=== PATIENT | female | born 1955 | race Hispanic/Latino ===

== ENCOUNTER → 2023-06-28 | Outpatient (CLI) | payer OTHER ==
[2023-06-28 12:40] LABS: ALBUMIN 3.6 g/dL (3.5-5.0); BILIRUBIN,TOTAL 0.4 mg/dL (0.2-1.0); CREATININE 0.6 mg/dL (0.5-1.5); MAGNESIUM 1.9 mg/dL (1.80-2.40); POTASSIUM 3.9 mmol/L (3.5-5.1); TOTAL PROTEIN, SERUM 7.7 g/dL (6.0-8.3)
== END | disposition home or self-care (01) ==
LOC: LAB 10:38
PROVIDERS: ATTEND Internal Medicine Cardiovascular Disease
DX: R07.9 Chest pain, unspecified (principal); R60.9 Edema, unspecified
CPT/HCPCS: 36415; 80053; 83735; 83880

== ENCOUNTER 2025-05-15 18:56 | Emergency (ER) | payer MEDICARE ==
[~2025-05-15] VITALS: Ht 165.1 cm; Wt 88.5 kg
[2025-05-15 18:57] VITALS: TEMP 98.2
--- NOTE | 2025-05-15 19:21 | EKG ---
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
[2025-05-15 19:25] LABS: IMMATURE GRANULOCYTE ABSOLUTE 0.02 K/uL (0-1); NUCLEATED RED BLOOD CELLS 0.0 % (0.0-0.19); PLATELET COUNT (AUTO) 264 K/uL (130-400); RED BLOOD CELL COUNT(AUTO) 3.91 MIL/uL (4.00-5.50); RED CELL DISTRIBUTION WIDTH 12.6 % (11.0-15.5); WHITE BLOOD COUNT (AUTO) 6.2 K/uL (4.8-10.8)
[2025-05-15 19:33] LABS: INR 0.97 (0.85-1.15)
[2025-05-15 19:41] LABS: CREATINE KINASE, TOTAL 130.0 U/L (21-232)
--- NOTE | 2025-05-15 19:41 | ERN ---
ED Note History of Present Illness Stated Complaint: DIZZINESS Chief Complaint: Dizzy/Light Headed Time Seen by MD: 19:01 Time Seen by Midlevel: 19:01 Dictation: The patient is a 70-year-old female with history of gastric bypass in 2019, cholecystectomy who presents to the emergency department with complaints of dizziness onset just prior to arrival. Patient reports that she doing some shopping today when she develop an onset of dizziness associated with shortness of breath and right side headache. Patient reports she feels like the room is spinning. Patient reports she had been recently diagnosed with COVID three weeks ago and she finished her Paxlovid. reports occasional cough. Patient denies any visual deficits, denies any numbness, denies any fevers. patient denies any head trauma, denies any syncopal episodes, denies any falls. Allergies: Coded Allergies: Sulfa (Sulfonamide Antibiotics) (Unverified Allergy, Unknown, 05/15/25) Past Medical History Past Medical History: Arthritis Surgical History: Cholecystectomy RN Note Reviewed/Agreed w/PFSH: Yes Review of System Dictation Constitutional: Negative for fever,chills, and weight loss Eyes: Negative for injury, pain,redness, and discharge ENT: Negative for injury,pain or swelling Cardiovascular: Negative for chest pain, palpitations, and edema Respiratory: Negative for shortness of breath, cough, and wheezing, Abdomen/GI: Negative for abdominal pain, nausea, vomiting, diarrhea, and constipation Back: Negative for injury and pain : Negative for injury, bleeding and discharge MS/Extremity: Negative for injury and deformity Skin: Negative for rash, and discoloration Neuro: Negative for headache, weakness, numbness, tingling, and seizure positive for dizziness Psych: Negative for suicide ideation, homicidal ideation, and hallucinations Initial Vital Sign VS Vital Signs Date Time Temp Pulse Resp B/P (MAP) Pulse Ox O2 Delivery O2 Flow Rate FiO2 05/15/25 18:57 98.2 87 20 101/50 99 Room Air 05/15/25 19:47 0 21 Physical Exam Dictation Vital Signs reviewed General Appearance: Alert, oriented x 3, no acute distress, well developed, nourished. Head and Face: non-traumatic. Eyes: PERRL, pink conjunctivas, eyelid no trauma, anterior chamber with arcus senilis. Ears: Pinnas intact and no signs of trauma or erythema ear canals clear and no discharge TM no erythema Nose: No discharge, no bleeding. Oropharynx: Mouth normal, tongue pink. pharynx clear,no erythema, tonsils no exudates, no abscesses noted, mucous membrane moist Neck: Supple, non-tender, no thyromegaly, no masses, no JVD, no bruits Breast:Deferred Chest:No tenderness, no crepitus, no paradoxical movement, no retractions Lungs:Clear, well-ventilated, symmetric, no rales, no wheezing, no rhonchi, no stridor, good breath sounds bilaterally Heart: Regular rate, regular rhythm, no murmur, no gallops Vascular: no peripheral edema, Abdomen: Soft, positive bowel sounds, nondistended, no guarding, nontender, no rebound, no masses no hepatomegaly, no splenomegaly, no Light's sign, no hernias. Rectal: Deferred Genital: Deferred Neurological: Normal speech, motor function intact, sensory function intact , upper extremities equal in strength, lower extremities equal in strength, no facial droop, no slurred speech Musculoskeletal: Neck nontender, full range of motion, back nontender, full range of motion, Extremities: nontender, full range of motion Skin: Color pink, dry, no turgor, no rash, no lacerations, no abrasions, no contusions. Lymphatic: Deferred Results (Laboratory/Radiology) Laboratory/Radiology Laboratory Tests Test 05/15/25 19:18 White Blood Count 6.2 K/uL (4.8-10.8) Red Blood Count 3.91 MIL/uL (4.00-5.50) L Hemoglobin 12.6 g/dL (12.0-16.0) Hematocrit 38.0 % (36-48) Mean Corpuscular Volume 97.2 fL (79-99) Mean Corpuscular Hemoglobin 32.2 pg (27.0-33.0) Mean Corpuscular Hemoglobin Concent 33.2 g/dL (32.0-36.0) Red Cell Distribution Width 12.6 % (11.0-15.5) Platelet Count 264 K/uL (130-400) Mean Platelet Volume 9.7 fL (7.5-10.5) Immature Granulocyte % (Auto) 0.3 % (0-1) Neutrophils (%) (Auto) 66.8 % (40.0-77.0) Lymphocytes (%) (Auto) 23.2 % (21.0-51.0) Monocytes (%) (Auto) 6.5 % (3.0-13.0) Eosinophils (%) (Auto) 2.4 % (0.0-8.0) Basophils (%) (Auto) 0.8 % (0.0-5.0) Neutrophils # (Auto) 4.1 K/uL (1.8-7.7) Lymphocytes # (Auto) 1.4 K/uL (1.0-4.8) Monocytes # (Auto) 0.4 K/uL (0.1-1.0) Eosinophils # (Auto) 0.15 K/uL (0.00-0.70) Basophils # (Auto) 0.05 K/uL (0.00-0.20) Absolute Immature Granulocyte (auto 0.02 K/uL (0-1) Nucleated Red Blood Cells 0.0 % (0.0-0.19) Prothrombin Time 10.3 SEC (9.6-11.6) Prothromb Time International Ratio 0.97 (0.85-1.15) Activated Partial Thromboplast Time 24.0 SEC (26.3-35.5) L Sodium Level 138 mmol/L (136-145) Potassium Level 3.2 mmol/L (3.5-5.1) L Chloride Level 102 mmol/L (101-111) Carbon Dioxide Level 26 mmol/L (21-32) Blood Urea Nitrogen 20 mg/dL (7-18) H Creatinine 0.7 mg/dL (0.5-1.0) Glomerular Filtration Rate Calc 94 mL/min (>90) Random Glucose 116 mg/dL (70-105) H Total Calcium 8.5 mg/dL (8.5-10.1) Magnesium Level 1.80 mg/dL (1.80-2.40) Total Creatine Kinase 130 U/L (21-232) Troponin I High Sensitivity 5 ng/L (4-50) REASON: dizzy ORDERING PHYSICIAN: MERRILL ALBRIGHT PROCEDURE: HEAD WO - CT HEAD/BRAIN W/O CONTRAST EXAM: CT Head Without IV contrast. CLINICAL HISTORY: dizzy TECHNIQUE: Axial computed tomography images of the head/brain without intravenous contrast. COMPARISON: None provided. FINDINGS: BRAIN: No evidence of acute hemorrhage. No mass lesion. No CT evidence for acute territorial infarct. No midline shift or extra-axial collections. VENTRICLES: No hydrocephalus. ORBITS: The orbits are unremarkable. SINUSES AND MASTOIDS: The paranasal sinuses and mastoid air cells are clear. BONES: No fracture. SOFT TISSUES: Unremarkable. IMPRESSION: No acute intracranial abnormality. /[place] REASON: NEAR SYNCOPE ORDERING PHYSICIAN: KAREL GARZA MD PROCEDURE: CXR1VW - CHEST 1VW EXAM: CR Chest, 1 View. CLINICAL HISTORY: NEAR SYNCOPE COMPARISON: None provided. FINDINGS: LUNGS: There is no mass, infiltrate, or acute pulmonary abnormality. PLEURAL SPACES: No evidence of pleural effusion or pneumothorax. MEDIASTINUM: Cardiac size and mediastinal contours within normal limits. BONES: No acute osseous abnormality. IMPRESSION: No acute cardiopulmonary pathology is evident. /[place] Labs Reviewed?: Yes EKG: (+) rhythm (Sinus rhythm) EKG Comment: Date:05/15/2025 Time:1912 Ventricular rate:70 [place] interval:132 QRS duration:108 QT/QTc:413/447 EKG interpretation: Sinus rhythm Reviewed by ED Attending no STEMI ED Course ED Course Orders Procedure Category Date Status Time Cbc With Differential LAB 05/15/25 Complete 19:08 Basic Metabolic Panel LAB 05/15/25 Complete 19:08 Pt And Ptt LAB 05/15/25 Complete 19:08 12 Lead Ekg Tracing- EKG 05/15/25 Complete Technical 19:08 Chest 1vw RAD 05/15/25 Resulted 19:08 Troponin I High LAB 05/15/25 Complete Sensitivity 19:10 Creatine Kinase, Total LAB 05/15/25 Complete 19:10 Ct Head/Brain W/O CT 05/15/25 Resulted Contrast 19:10 Orthostatic Vital CPOE 05/15/25 Transmitted Signs 19:10 0.9%Nacl 1000ml (Ns PHA 05/15/25 Complete 1000ml) 19:30 Meclizine Hcl 25 Mg PHA 05/15/25 Complete (Antivert 25 Mg) 19:30 Acetaminophen 500mg PHA 05/15/25 Complete Tab (Tylenol 500mg T 19:30 Magnesium LAB 05/15/25 Complete 19:10 Potassium Bicarb/Cit PHA 05/15/25 Complete Ac 25meq (K-Lyte Ta 21:00 Current Medications Medications (Trade) Dose Ordered Sig/Geetha Route PRN Reason Start Time Stop Time Status Last Admin Dose Admin Acetaminophen (TYLenol 500MG TAB) 1,000 mg ONCE ONCE PO 05/15/25 19:30 05/15/25 19:31 DC 05/15/25 19:46 Meclizine HCl (ANTIvert 25 mg) 25 mg ONCE ONCE PO 05/15/25 19:30 05/15/25 19:31 DC 05/15/25 19:46 Potassium Bicarbonate (K-Lyte Tablet Eff 25 Meq Tablet.eff) 25 meq ONCE ONCE PO 05/15/25 21:00 05/15/25 21:01 DC 05/15/25 20:54 Sodium Chloride 1,000 ml @ 0 mls/hr ONCE ONCE IV 05/15/25 19:30 05/15/25 19:31 DC 05/15/25 19:46 Vital Signs Date Time Temp Pulse Resp B/P (MAP) Pulse Ox O2 Delivery O2 Flow Rate FiO2 05/15/25 20:37 68 17 113/55 98 Room Air* 0 21 05/15/25 20:37 74 17 117/56 98 Room Air* 0 21 05/15/25 20:36 69 17 106/57 100 Room Air* 0 21 05/15/25 19:47 65 18 100/44 99 Room Air* 0 21 05/15/25 18:57 98.2 87 20 101/50 99 Room Air Medical Decision Making MDM The patient is a 70-year-old female with history of gastric bypass in 2019, cholecystectomy who presents to the emergency department with complaints of dizz iness onset just prior to arrival. Patient reports that she doing some shopping today when she develop an onset of dizziness associated with shortness of breath and right side headache. Patient reports she feels like the room is spinning. Patient reports she had been recently diagnosed with COVID three weeks ago and she finished her Paxlovid. reports occasional cough. Patient denies any visual deficits, denies any numbness, denies any fevers patient denies any head trauma, denies any syncopal episodes, denies any falls. CBC showed no leukocytosis, no anemia, chemistry showed mild hypokalemia, normal renal function, negative troponin, chest x-ray showed no acute pathology, CT head showed no acute intracranial hemorrhage. Patient reports feeling better af ter medication administration. On physical exam patient is in no acute distress, nontoxic appearance, NIH of 0. Patient at this time feels okay to go home. Patient instructed to follow up with PCP in 1-2 days and to return if anything worsens. Patient agrees with discharge planning. Differential diagnosis: Vertigo, dehydration, electrolyte imbalance, intracerebral hemorrhage, tachyarrhythmia Need for hospitalization: Patient does not meet criteria for hospitalization. There are no social concerns with this patient. DX & DISP Disposition: Discharge Departure Impression: Primary Impression: Vertigo Additional Impression: Hypokalemia Condition: Stable Scripts Meclizine HCl (Meclizine HCl) 25 Mg Tablet 25 MG PO TID for vertigo, #30 TAB 0 Refills Prov: MERRILL ALBRIGHT 05/15/25 Additional Instructions: Your labs were unremarkable except for your potassium was slightly low which we replaced in the ER. Your CT head and your chest x-ray were normal. Please continue oral hydration at home. Follow up with your primary doctor in 1-2 days. If anything worsens please return to ER for further evaluation. FOLLOW-UP WITH PRIMARY CARE PROVIDER IN 1 TO 2 DAYS. TAKE MEDICATIONS DIRECTED HERE IN THE EMERGENCY ROOM. OKAY TO CONTINUE HOME MEDICATIONS UNLESS OTHERWISE DISCUSSED DURING YOUR VISIT IN THE EMERGENCY ROOM TODAY. RETURN TO [facility] EM[facility]GENCY ROOM IF SYMPTOMS WORSEN OR IF THERE IS NO IMPROVEMENT. CALL 911 IF YOU NEED IMMEDIATE ASSISTANCE. TAKE TYLENOL [id number] NEEDED AND IF NO CONTRAINDICATIONS ARE PRESENT. INCREASE ORAL HYDRATION. A WOUND CULTURE OR URINE CULTURE WAS ORDERED HERE IN THE EMERGENCY ROOM DEPARTMENT PLEASE FOLLOW-UP WITH PRIMARY CARE PROVIDER AND ADVISE THEM TO GET REPEAT PORTS FROM OUR FACILITY. IF YOU HAD ANY URSULA WRAP/SPLINTS THAT WERE APPLIED HERE, PLEASE DO NOT REMOVE THEM UNTIL YOU SEE YOUR PRIMARY CARE OR SPECIALTY. Referrals: DANIEL CERVANTES MD (PCP) Time of Disposition: 21:10 I have reviewed the case, and I agree with, Diagnosis and Plan MERRILL ALBRIGHT May 15, 2025 19:41
[2025-05-15] MEDS: 0.9%NACL 1000ML 1,000 ML IV ONE (19:46)
[2025-05-15 20:19] LABS: CREATININE 0.7 mg/dL (0.5-1.0); GLOMERULAR FILTR. RATE CALC 94.0 mL/min (>90); GLUCOSE,RANDOM 116.0 mg/dL (70-105); SODIUM SERUM 138.0 mmol/L (136-145); UREA NITROGEN, BLOOD 20.0 mg/dL (7-18)
[2025-05-15 20:37] VITALS: BP 113/55; PULSE 68; RESP 17; O2SAT 98
--- NOTE | 2025-05-15 20:46 | HMCIMG ---
EXAM: CR Chest, 1 View. CLINICAL HISTORY: NEAR SYNCOPE COMPARISON: None provided. FINDINGS: LUNGS: There is no mass, infiltrate, or acute pulmonary abnormality. PLEURAL SPACES: No evidence of pleural effusion or pneumothorax. MEDIASTINUM: Cardiac size and mediastinal contours within normal limits. BONES: No acute osseous abnormality. IMPRESSION: No acute cardiopulmonary pathology is evident. /[place]
--- NOTE | 2025-05-15 20:47 | HMCIMG ---
EXAM: CT Head Without IV contrast. CLINICAL HISTORY: dizzy TECHNIQUE: Axial computed tomography images of the head/brain without intravenous contrast. COMPARISON: None provided. FINDINGS: BRAIN: No evidence of acute hemorrhage. No mass lesion. No CT evidence for acute territorial infarct. No midline shift or extra-axial collections. VENTRICLES: No hydrocephalus. ORBITS: The orbits are unremarkable. SINUSES AND MASTOIDS: The paranasal sinuses and mastoid air cells are clear. BONES: No fracture. SOFT TISSUES: Unremarkable. IMPRESSION: No acute intracranial abnormality. /[place]
[2025-05-15] MEDS ORDERED: MECL-302 PO (21:12)
== END 2025-05-15 21:20 | disposition home or self-care (01) ==
LOC: EDH 18:56
DX: R42 Dizziness and giddiness (principal); E87.6 Hypokalemia; R06.02 Shortness of breath; R51.9 Headache, unspecified; M19.90 Unspecified osteoarthritis, unspecified site; Z88.2 Allergy status to sulfonamides; Z90.49 Acquired absence of other specified parts of digestive tract
CPT/HCPCS: 99285; 70450; 96360; 71045; 82550; 83735; 84484; 80048; 85025; 85610; 85730; 36415; 93005; J7030